=== PATIENT | female | born 1975 | race Caucasian/White ===

== ENCOUNTER → 2017-01-29 | Outpatient (CLI) | payer BC | END | disposition home or self-care (01) | LOC: C.PAPS 14:15 | PROVIDERS: ATTEND Obstetrics & Gynecology | DX: Z01.419 Encounter for gynecological examination (general) (routine) without abnormal findings (principal) ==

== ENCOUNTER 2022-10-30 17:28 | Observation (INO) ==
--- NOTE | 2022-10-30 17:45 | ED Triage Note ---
Date of Service October 30, 2022 History of Present Illness This patient was briefly evaluated while in triage. An abbreviated physical exam was performed. This patient is a 47-year-old Female who presents to the ED for evaluation of infection to groin area. She notes worsening size of the infection. Chills s aturday but none now. Can barely walk secondary to pain. Physical Exam GENERAL: 47year old female. In no acute distress. HEART: Regular rate and rhythm. LUNGS: Clear to auscultation. NEURO: Alert and oriented. No deficits. MUSCULOSKELETAL: No deformities to inspection of the extremities. PSYCH: Patient is pleasant and answers all questions appropriately. Initial orders for labs and / or imaging were placed and patient was placed in the waiting area until a bed is available. Please see further documentation for the full ED course.
[2022-10-30] MEDS ORDERED: SODIUM CHLORIDE 0.9% 1000ML 1,000 ML IV ONE (18:30)
[2022-10-30] MEDS ORDERED: MoRPHine SULFATE 4 MG/ML 1 ML CARP\\VIAL IV STA (18:30)
[2022-10-30] MEDS ORDERED: ONDANSETRON INJ 2 MG/ML 2 ML VIAL IV STA ×2 (18:30→19:44)
[2022-10-30 18:49] LABS: Basophils # (auto) 0.04 K/uL (0-0.2); Basophils % (auto) 0.3 %; Eosinophils # (auto) 0.12 K/uL (0-0.50); Eosinophils % (auto) 0.8 %; Hematocrit (blood only) 37.1 % (37.0-47.0); Hemoglobin 12.3 g/dl (12.0-16.0); Immature Granulocytes # (auto) 0.08 K/uL (0.01-0.20); Immature Granulocytes % (auto) 0.6 %; Lymphocytes # (auto) 2.12 K/uL (1.2-3.4); Lymphocytes % (auto) 14.9 %; Mean Corpuscular Hemoglobin 30.4 pg (25.0-34.0); Mean Corpuscular Hgb Conc 33.2 g/dL (32.0-36.0); Mean Corpuscular Volume 91.8 fL (80.0-100.0); Mean Platelet Volume 10.4 fL (9.4-12.4); Monocytes # (auto) 0.78 K/uL (0.11-0.59); Monocytes % (auto) 5.5 %; Neutrophils # (auto) 11.08 K/uL (1.40-6.50); Neutrophils % (auto) 77.9 %; Platelet Count 233 K/uL (130-400); RDW Standard Deviation 43.6 fL (36.4-46.3); Red Blood Count 4.04 M/uL (4.20-5.40); White Blood Count 14.22 K/ul (4.8-10.8)
[2022-10-30 18:56] LABS: Albumin Globulin Ratio 1.2 (0.9-2); Albumin Level 3.8 gm/dl (3.4-5.0); BUN Creatinine Ratio 23.5 (10-20); Bilirubin,Total 0.5 mg/dl (0.2-1.0); Calcium 8.5 mg/dl (8.6-10.3); Creatinine Clr Calc Pharmacy 127.2 ml/min; Est GFR (African American) 132.7 ml/min; Est GFR (Non-African American) 114.5 ml/min; Globulin 3.3 gm/dl (2.5-4.0); Potassium 3.4 mmol/L (3.5-5.1); Total Protein 7.1 gm/dl (6.0-8.3)
[2022-10-30 19:16] LABS: INR 0.9 (0.9-1.1); Partial Thromboplastin Time 27.6 Seconds (21.0-31.0); Prothrombin Time 10.3 Seconds (9.0-12.0)
[2022-10-30] MEDS ORDERED: VANCOMYCIN CONSULT ACTIVE PRN (19:17)
[2022-10-30] MEDS ORDERED: cefTRIAXone SODIUM 1,000 MG in DEXTROSE 5% AD-VAN 50 ML IV STA (19:17)
[2022-10-30] MEDS ORDERED: VANCOMYCIN HCL 1,750 MG in SODIUM CHLORIDE 0.9% 500 ML IV ONE (19:17)
[2022-10-30] MEDS ORDERED: OPTIRAY 320 100ml IV ONE (19:38)
--- NOTE | 2022-10-30 19:40 | Emergency Department Note ---
History of Present Illness General Chief complaint: Infection Stated complaint: INFECTION LEG/GROIN,SPREADING Time Seen by Provider: 10/30/22 18:12 History of Present Illness Provider complaint: Infection Maximum Pain Intensity: 8 47-year-old female presents emergency department with right groin rash and pain. Patient reports that starting Sunday she started having an ingrown hair in her right groin area. Patient states that she was seen in the emergency department and started on doxycycline on Sunday. She states since then the rash has become more inflamed, more tender to touch and more red. She denies any fevers. She denies any drainage. She does state that she had shaved the area approximately a week ago and then [place]. Home Medications Medication Instructions Recorded Confirmed Type montelukast 10 mg tablet 10 mg PO DAILY 04/05/20 10/30/22 History (Singulair) desogestrel 0.15 mg-ethinyl 1 tab PO DAILY 10/30/22 10/30/22 History estradiol 0.03 mg tablet (Enskyce) fluoxetine 40 mg capsule 40 mg PO DAILY 10/30/22 10/30/22 History multivitamin 1 tab PO DAILY 10/30/22 10/30/22 History semaglutide (weight loss) 2.4 2.4 mg subcut WK 10/30/22 10/30/22 History mg/0.75 mL subcutaneous pen injector (Wegovy) Allergies Allergy/AdvReac Type Severity Reaction Status Date / Time No Known Allergies Allergy Verified 04/26/22 14:01 Past Med/Surg History Medical History Varicella Surgical History H/O tooth extraction Family History Family/Other Depression Hepatitis Hypertension Osteoporosis Grandmother (Paternal) Uterine cancer Denies family history of Ovarian cancer Prostate cancer Myocardial infarction Breast cancer Colorectal cancer Social History Smoking Status: Former smoker Do You Dip or Chew Tobacco: No; Hx Alcohol Use: Yes Hx Substance Use: No Preferred Language: Malaysian Feels Safe at Home: Yes Physical Exam Vital Signs Vital Signs - 24 hr 10/30/22 17:42 Temperature 37 C Temperature Source Temporal Artery Scan Pulse Rate 91 H Respiratory Rate 15 Blood Pressure 152/91 H Blood Pressure Mean 111 Pulse Oximetry 97 Oxygen Delivery Method Room Air Sepsis Recent Fever Within 48 Hours No Sepsis New/Unexplained Change in Mental Status No Sepsis Action Taken by Nursing No Action Required Physical Exam CV: Normal rate, regular rhythm, normal heart sounds and intact distal pulses. There is no peripheral edema. Palpable radial pulses bue. PULM/CHEST: Effort normal and breath sounds normal. No respiratory distress. No stridor. She has no wheezes. She has no rales. ABD: The abdomen is soft and obese. She has no distension. No mass is present. There is no tenderness. There is no rebound, no guarding, no Guaman's sign and no tenderness at McBurney's point. Rovsig negative NEURO: She is alert and oriented to person, place, and time. She has normal strength. No cranial nerve deficit or sensory deficit. Coordination and gait normal. GCS eye subscore is 4. GCS verbal subscore is 5. GCS motor subscore is 6. Cerebellar tests wnl. SKIN: There are 2 small abrasion/scratches in the right inguinal/superior right vulvar area with significant amount of surrounding erythema extending into her right pannus. No vesicles. No drainage. Nikolsky negative. Course Course 1811: The patient was evaluated in room C6. A complete history and physical exam was performed Administered Medications Discontinued Medications Sodium Chloride (Nss 1000ml) 1,000 mls @ 999 mls/hr IV .Q1H1M ONE Stop: 10/30/22 19:30 Last Admin: 10/30/22 18:43 Dose: 999 mls/hr Documented By: PAM Ceftriaxone Sodium 1,000 mg/ (Dextrose) 50 mls @ 100 mls/hr IV NOW STA Stop: 10/30/22 19:46 Last Admin: 10/30/22 20:00 Dose: 100 mls/hr Documented By: TYLER Ioversol (Optiray 320 100ml) 95 ml IV ONCE ONE Stop: 10/30/22 19:39 Last Admin: 10/30/22 19:38 Dose: 95 ml Documented By: EDUARD Morphine Sulfate (Morphine Sulfate 4 Mg/Ml 1 Ml Carp\Vial) 4 mg IV NOW STA Stop: 10/30/22 18:31 Last Admin: 10/30/22 18:44 Dose: 4 mg Documented By: PAM Ondansetron HCl (Ondansetron Inj 2 Mg/Ml 2 Ml Vial) 4 mg IV NOW STA Stop: 10/30/22 18:31 Last Admin: 10/30/22 18:44 Dose: 4 mg Documented By: PAM Ondansetron HCl (Ondansetron Inj 2 Mg/Ml 2 Ml Vial) 4 mg IV NOW STA Stop: 10/30/22 19:45 Last Admin: 10/30/22 20:00 Dose: 4 mg Documented By: TYLER Medical Decision Making Laboratory Data Attestation: I reviewed the patient's lab results. 10/30/22 18:12 10/30/22 18:12 Lab Results 10/30/22 10/30/22 10/30/22 Range/Units 18:12 18:12 18:12 WBC 14.22 H (4.8-10.8) K/ul RBC 4.04 L (4.20-5.40) M/uL Hgb 12.3 (12.0-16.0) g/dl Hct 37.1 (37.0-47.0) % MCV 91.8 (80.0-100.0) fL MCH 30.4 (25.0-34.0) pg MCHC 33.2 (32.0-36.0) g/dL RDW Std Deviation 43.6 (36.4-46.3) fL RDW Coeff of Zana 13.0 (11.5-14.5) % Plt Count 233 (130-400) K/uL MPV 10.4 (9.4-12.4) fL Immature Gran % (Auto) 0.6 % Neut % (Auto) 77.9 % Lymph % (Auto) 14.9 % [place] % (Auto) 5.5 % Eos % (Auto) 0.8 % Baso % (Auto) 0.3 % Neut # (Auto) 11.08 H (1.40-6.50) K/uL Lymph # (Auto) 2.12 (1.2-3.4) K/uL [place] # (Auto) 0.78 H (0.11-0.59) K/uL Eos # (Auto) 0.12 (0-0.50) K/uL Baso # (Auto) 0.04 (0-0.2) K/uL Immature Gran # (Auto) 0.08 (0.01-0.20) K/uL PT (9.0-12.0) Seconds INR (0.9-1.1) APTT (21.0-31.0) Seconds PTT Ratio Sodium 138 (136-145) mmol/L Potassium 3.4 L (3.5-5.1) mmol/L Chloride 106 (98-107) mmol/L Carbon Dioxide 23 (21-32) mmol/L Anion Gap 9 (3-11) BUN 12 (6-23) mg/dl Creatinine 0.51 L (0.6-1.2) mg/dl Est Cr Clr Drug Dosing 127.2 ml/min Est GFR ( Amer) 132.7 ml/min Est GFR (Non-Af Amer) 114.5 ml/min BUN/Creatinine Ratio 23.5 H (10-20) Glucose 80 (70-99(Fasting)) mg/dl Lactate (0.4-2.0) mmol/L Calcium 8.5 L (8.6-10.3) mg/dl Total Bilirubin 0.5 (0.2-1.0) mg/dl AST 12 L (13-39) U/L ALT 15 (7-52) U/L Alkaline Phosphatase 73 (34-104) U/L Total Protein 7.1 (6.0-8.3) gm/dl Albumin 3.8 (3.4-5.0) gm/dl Globulin 3.3 (2.5-4.0) gm/dl Albumin/Globulin Ratio 1.2 (0.9-2) Procalcitonin 3.96 H (0-0.5) ng/ml SARS-CoV-2, RNA, NAAT (NEGATIVE) 10/30/22 10/30/22 10/30/22 Range/Units 18:12 18:12 20:55 WBC (4.8-10.8) K/ul RBC (4.20-5.40) M/uL Hgb (12.0-16.0) g/dl Hct (37.0-47.0) % MCV (80.0-100.0) fL MCH (25.0-34.0) pg MCHC (32.0-36.0) g/dL RDW Std Deviation (36.4-46.3) fL RDW Coeff of Zana (11.5-14.5) % Plt Count (130-400) K/uL MPV (9.4-12.4) fL Immature Gran % (Auto) % Neut % (Auto) % Lymph % (Auto) % [place] % (Auto) % Eos % (Auto) % Baso % (Auto) % Neut # (Auto) (1.40-6.50) K/uL Lymph # (Auto) (1.2-3.4) K/uL [place] # (Auto) (0.11-0.59) K/uL Eos # (Auto) (0-0.50) K/uL Baso # (Auto) (0-0.2) K/uL Immature Gran # (Auto) (0.01-0.20) K/uL PT 10.3 (9.0-12.0) Seconds INR 0.9 (0.9-1.1) APTT 27.6 (21.0-31.0) Seconds PTT Ratio 1.0 Sodium (136-145) mmol/L Potassium (3.5-5.1) mmol/L Chloride (98-107) mmol/L Carbon Dioxide (21-32) mmol/L Anion Gap (3-11) BUN (6-23) mg/dl Creatinine (0.6-1.2) mg/dl Est Cr Clr Drug Dosing ml/min Est GFR ( Amer) ml/min Est GFR (Non-Af Amer) ml/min BUN/Creatinine Ratio (10-20) Glucose (70-99(Fasting)) mg/dl Lactate 0.9 (0.4-2.0) mmol/L Calcium (8.6-10.3) mg/dl Total Bilirubin (0.2-1.0) mg/dl AST (13-39) U/L ALT (7-52) U/L Alkaline Phosphatase (34-104) U/L Total Protein (6.0-8.3) gm/dl Albumin (3.4-5.0) gm/dl Globulin (2.5-4.0) gm/dl Albumin/Globulin Ratio (0.9-2) Procalcitonin (0-0.5) ng/ml SARS-CoV-2, RNA, NAAT NEGATIVE (NEGATIVE) Imaging Data Radiologist's Impression: Abdomen/Pelvis CT 10/30/22 18:29 Exam(s): CT ABDOMEN + PELVIS With Contrast IV Amt: 95ml optiray 320 EXAM: CT Abdomen and Pelvis With Intravenous Contrast CLINICAL HISTORY: Reason for exam: R inguinal RLQ possible abscess. TECHNIQUE: Axial computed tomography images of the abdomen and pelvis with intravenous contrast. CTDI is 28.11 mGy and DLP is 1244.93 mGy-cm. Automated exposure control was utilized for the study. A dose lowering technique was utilized adhering to the principles of ALARA. CONTRAST: Patient received 95ml optiray 320 of IV contrast COMPARISON: No relevant prior studies available. FINDINGS: Lung bases: Unremarkable. No mass. No consolidation. ABDOMEN: Liver: Unremarkable. No mass. Gallbladder and bile ducts: Unremarkable. No calcified stones. No ductal dilation. Pancreas: Unremarkable. No mass. No ductal dilation. Spleen: Unremarkable. No splenomegaly. Adrenals: Unremarkable. No mass. Kidneys and ureters: Unremarkable. No solid mass. No hydronephrosis. Stomach and bowel: Status post Hayley-en-Y gastric bypass. No obstruction of the jejunojejunostomy. Diverticulosis, without acute diverticulitis. No small bowel obstruction. No free intraperitoneal air. PELVIS: Appendix: No findings to suggest acute appendicitis. Bladder: Unremarkable. No mass. Reproductive: Unremarkable as visualized. ABDOMEN and PELVIS: Intraperitoneal space: Unremarkable. No free air. No significant fluid collection. Bones/joints: Grade 1 anterolisthesis of L5 on S1. No acute fracture. No dislocation. Soft tissues: Mild skin thickening and edema along the anterior abdominal pannus, preferentially located in the deep pannus on the RIGHT, consistent with cellulitis. No fluid collection or abscess. Mild reactive RIGHT inguinal lymph nodes. Vasculature: Unremarkable. No abdominal aortic aneurysm. Lymph nodes: Unremarkable. No enlarged lymph nodes. IMPRESSION: 1. Mild skin thickening and edema along the anterior abdominal pannus, preferentially located in the deep pannus on the RIGHT, consistent with cellulitis. No fluid collection or abscess. Mild reactive RIGHT inguinal lymph nodes. 2. Status post Hayley-en-Y gastric bypass. No obstruction of the jejunojejunostomy. Electronically signed by: Ryan Cobian MD 10/30/22 20:03 PM MDM Narrative Cardiac monitoring: An order was placed for continuous cardiac monitoring. The monitor shows a rate of 90 with sinus rhythm interpreted by me Vital signs stable. Labs show leukocytosis of 14. Procalcitonin is elevated. Lactic acid is within normal limits. CT imaging shows cellulitis with no abscess. Patient be treated with Rocephin and vancomycin [facility] failed outpatient treatment. Dr. Pollard is aware of the patient Impression & Plan Cellulitis Discharge Plan Visit Data Chief Complaint: Infection Stated Complaint: INFECTION LEG/GROIN,SPREADING ED Provider: Solomon William Discharge Problem: Cellulitis Patient Disposition: Admitted As Inpatient Forms Stand Alone Forms: [facility] Prescriptions Prescriptions: No Action montelukast [Singulair] 10 mg tablet 10 mg PO DAILY desogestrel-ethinyl estradiol [Enskyce] 0.15-0.03 mg tablet 1 tab PO DAILY fluoxetine 40 mg capsule 40 mg PO DAILY multivitamin Tablet 1 tab PO DAILY Wegovy 2.4 mg/0.75 mL pen injector 2.4 mg SUBCUT WK Referrals Referrals: Ned Boone MD [Primary Care Provider] -
--- NOTE | 2022-10-30 20:04 | CT Scan Report ---
Exam(s): CT ABDOMEN + PELVIS With Contrast IV Amt: 95ml optiray 320 EXAM: CT Abdomen and Pelvis With Intravenous Contrast CLINICAL HISTORY: Reason for exam: R inguinal RLQ possible abscess. TECHNIQUE: Axial computed tomography images of the abdomen and pelvis with intravenous contrast. CTDI is 28.11 mGy and DLP is 1244.93 mGy-cm. Automated exposure control was utilized for the study. A dose lowering technique was utilized adhering to the principles of ALARA. CONTRAST: Patient received 95ml optiray 320 of IV contrast COMPARISON: No relevant prior studies available. FINDINGS: Lung bases: Unremarkable. No mass. No consolidation. ABDOMEN: Liver: Unremarkable. No mass. Gallbladder and bile ducts: Unremarkable. No calcified stones. No ductal dilation. Pancreas: Unremarkable. No mass. No ductal dilation. Spleen: Unremarkable. No splenomegaly. Adrenals: Unremarkable. No mass. Kidneys and ureters: Unremarkable. No solid mass. No hydronephrosis. Stomach and bowel: Status post Hayely-en-Y gastric bypass. No obstruction of the jejunojejunostomy. Diverticulosis, without acute diverticulitis. No small bowel obstruction. No free intraperitoneal air. PELVIS: Appendix: No findings to suggest acute appendicitis. Bladder: Unremarkable. No mass. Reproductive: Unremarkable as visualized. ABDOMEN and PELVIS: Intraperitoneal space: Unremarkable. No free air. No significant fluid collection. Bones/joints: Grade 1 anterolisthesis of L5 on S1. No acute fracture. No dislocation. Soft tissues: Mild skin thickening and edema along the anterior abdominal pannus, preferentially located in the deep pannus on the RIGHT, consistent with cellulitis. No fluid collection or abscess. Mild reactive RIGHT inguinal lymph nodes. Vasculature: Unremarkable. No abdominal aortic aneurysm. Lymph nodes: Unremarkable. No enlarged lymph nodes. IMPRESSION: 1. Mild skin thickening and edema along the anterior abdominal pannus, preferentially located in the deep pannus on the RIGHT, consistent with cellulitis. No fluid collection or abscess. Mild reactive RIGHT inguinal lymph nodes. 2. Status post Hayley-en-Y gastric bypass. No obstruction of the jejunojejunostomy. Electronically signed by: Ryan Cobian MD 10/30/22 20:03 PM
--- NOTE | 2022-10-30 21:46 | History & Physical Report ---
Date of Service October 30, 2022 Assessment & Plan (1) Cellulitis: Plan: 47-year-old female with past medical history significant for obstructive sleep apnea, hypertension, morbid obesity, GERD, TEO presents with cellulitis of the groin and lower abdominal region. Cellulitis In the groin region extending into the lower abdomen region. Failed outpatient treatment with p.o. doxycycline. In the ER was given IV Vanco and Rocephin which will be continued. Monitor in the hospital and monitor the response. Pain control. Obstructive sleep apnea CPAP nightly. Hypertension Currently not on medications we will monitor the blood pressure. Morbid obesity S/p gastric surgery Follow-up with PCP. Generalized anxiety disorder On fluoxetine. DVT prophylaxis Lovenox. Disposition Monitor the medical floor. Full code. History of Present Illness Chief Complaint: Cellulitis of the lower abdomen and groin region Primary Care Provider: Ned Boone MD 47-year-old female with past medical history significant for obstructive sleep apnea on CPAP, hypertension, morbid obesity, GERD, generalized anxiety disorder, history of bariatric surgery presents with cellulitis of the lower abdominal and groin region and failed outpatient treatment with doxycycline. Patient thinks she might of some cut from shaving in groin region and recently she was at beach and last Sunday she noticed some pain and erythematous changes in the groin region. She came to the ER on Sunday. At that time she was feeling having some chills and possibly low-grade fevers. She was discharged from ER on p.o. doxycycline. Patient says her pain got worse and the erythematous rash got worse so she came back to the ER today. Currently resting comfortably and hemodynamically stable. Denies any headache currently , had headaches couple of days ago. Denies dizziness. No runny nose, no sore throat, no earaches, no cough, no difficulty swallowing. No chest pain or shortness of breath. No nausea. Normal bowel and bladder movements. Past medical history as mentioned above. Past surgical history EGD, laparoscopic procedure of the liver, laparoscopic gastric bypass surgery Hayley-en-Y. Allergies Allergy/AdvReac Type Severity Reaction Status Date / Time No Known Allergies Allergy Verified 04/26/22 14:01 Home Medications Medication Instructions Recorded Confirmed Type montelukast 10 mg tablet 10 mg PO DAILY 04/05/20 10/30/22 History (Singulair) desogestrel 0.15 mg-ethinyl 1 tab PO DAILY 10/30/22 10/30/22 History estradiol 0.03 mg tablet (Enskyce) fluoxetine 40 mg capsule 40 mg PO DAILY 10/30/22 10/30/22 History multivitamin 1 tab PO DAILY 10/30/22 10/30/22 History semaglutide (weight loss) 2.4 2.4 mg subcut WK 10/30/22 10/30/22 History mg/0.75 mL subcutaneous pen injector (Wegovy) Past Med/Surg History Medical History Varicella Surgical History H/O tooth extraction Family History Family/Other Depression Hepatitis Hypertension Osteoporosis Grandmother (Paternal) Uterine cancer Denies family history of Ovarian cancer Prostate cancer Myocardial infarction Breast cancer Colorectal cancer Social History (Updated 10/30/22 @ 21:41 by Steven Pollard MD) Smoking Status: Former smoker Do You Dip or Chew Tobacco: No; Hx Alcohol Use: Yes Hx Substance Use: No Preferred Language: Faroese Feels Safe at Home: Yes Review of Systems Review of Systems: All systems reviewed & are unremarkable except as noted in Subjective Physical Exam Physical Exam: NEEDS EDITING General- adult Head- atraumatic Eyes- PERRL, ENT- oropharynx clear Neck- supple, no JVD, Lungs- clear to auscultation and percussion Heart- regular rhythm; no murmur, no gallop, no rub appreciated Abdomen- normal bowel sounds, soft, erythematous rash from groin to lower abdomen, tender to palpate. Extremities- no pretibial edema, no calf tenderness; peripheral pulses intact Neuro- alert, oriented x 3; PERRL, EOMI; no facial palsy; no dysarthria; non focal. Results & Data Results & Data Vital Signs (Past 12 Hours) Vital Signs Temp Pulse Resp BP Pulse Ox O2 Del Method 10/30/22 17:42 37 C 91 H 15 152/91 H 97 Room Air Diagnostic Findings Laboratory Results WBC 14.22 K/ul (4.8-10.8) H 10/30/22 18:12 RBC 4.04 M/uL (4.20-5.40) L 10/30/22 18:12 Hgb 12.3 g/dl (12.0-16.0) 10/30/22 18:12 Hct 37.1 % (37.0-47.0) 10/30/22 18:12 MCV 91.8 fL (80.0-100.0) 10/30/22 18:12 MCH 30.4 pg (25.0-34.0) 10/30/22 18:12 MCHC 33.2 g/dL (32.0-36.0) 10/30/22 18: RDW Std Deviation 43.6 fL (36.4-46.3) 10/30/22 18:12 RDW Coeff of Zana 13.0 % (11.5-14.5) 10/30/22 18:12 Plt Count 233 K/uL (130-400) 10/30/22 18:12 MPV 10.4 fL (9.4-12.4) 10/30/22 18:12 Immature Gran % (Auto) 0.6 % 10/30/22 18:12 Neut % (Auto) 77.9 % 10/30/22 18:12 Lymph % (Auto) 14.9 % 10/30/22 18:12 [place] % (Auto) 5.5 % 10/30/22 18:12 Eos % (Auto) 0.8 % 10/30/22 18:12 Baso % (Auto) 0.3 % 10/30/22 18:12 Neut # (Auto) 11.08 K/uL (1.40-6.50) H 10/30/22 18:12 Lymph # (Auto) 2.12 K/uL (1.2-3.4) 10/30/22 18:12 [place] # (Auto) 0.78 K/uL (0.11-0.59) H 10/30/22 18:12 Eos # (Auto) 0.12 K/uL (0-0.50) 10/30/22 18:12 Baso # (Auto) 0.04 K/uL (0-0.2) 10/30/22 18:12 Immature Gran # (Auto) 0.08 K/uL (0.01-0.20) 10/30/22 18:12 PT 10.3 Seconds (9.0-12.0) 10/30/22 18:12 INR 0.9 (0.9-1.1) 10/30/22 18:12 APTT 27.6 Seconds (21.0-31.0) 10/30/22 18:12 PTT Ratio 1.0 10/30/22 18:12 Sodium 138 mmol/L (136-145) 10/30/22 18:12 Potassium 3.4 mmol/L (3.5-5.1) L 10/30/22 18:12 Chloride 106 mmol/L (98-107) 10/30/22 18:12 Carbon Dioxide 23 mmol/L (21-32) 10/30/22 18:12 Anion Gap 9 (3-11) 10/30/22 18:12 BUN 12 mg/dl (6-23) 10/30/22 18:12 Creatinine 0.51 mg/dl (0.6-1.2) L 10/30/22 18:12 Est Cr Clr Drug Dosing 127.2 ml/min 10/30/22 18:12 Est GFR ( Amer) 132.7 ml/min 10/30/22 18:12 Est GFR (Non-Af Amer) 114.5 ml/min 10/30/22 18:12 BUN/Creatinine Ratio 23.5 (10-20) H 10/30/22 18:12 Glucose 80 mg/dl (70-99(Fasting)) 10/30/22 18:12 Lactate 0.9 mmol/L (0.4-2.0) 10/30/22 18:12 Calcium 8.5 mg/dl (8.6-10.3) L 10/30/22 18:12 Total Bilirubin 0.5 mg/dl (0.2-1.0) 10/30/22 18:12 AST 12 U/L (13-39) L 10/30/22 18:12 ALT 15 U/L (7-52) 10/30/22 18:12 Alkaline Phosphatase 73 U/L (34-104) 10/30/22 18:12 Total Protein 7.1 gm/dl (6.0-8.3) 10/30/22 18:12 Albumin 3.8 gm/dl (3.4-5.0) 10/30/22 18:12 Globulin 3.3 gm/dl (2.5-4.0) 10/30/22 18:12 Albumin/Globulin Ratio 1.2 (0.9-2) 10/30/22 18:12 Procalcitonin 3.96 ng/ml (0-0.5) H 10/30/22 18:12 SARS-CoV-2, RNA, NAAT NEGATIVE (NEGATIVE) 10/30/22 20:55 Impressions Abdomen/Pelvis CT 10/30/22 18:29 Exam(s): CT ABDOMEN + PELVIS With Contrast IV Amt: 95ml optiray 320 EXAM: CT Abdomen and Pelvis With Intravenous Contrast CLINICAL HISTORY: Reason for exam: R inguinal RLQ possible abscess. TECHNIQUE: Axial computed tomography images of the abdomen and pelvis with intravenous contrast. CTDI is 28.11 mGy and DLP is 1244.93 mGy-cm. Automated exposure control was utilized for the study. A dose lowering technique was utilized adhering to the principles of ALARA. CONTRAST: Patient received 95ml optiray 320 of IV contrast COMPARISON: No relevant prior studies available. FINDINGS: Lung bases: Unremarkable. No mass. No consolidation. ABDOMEN: Liver: Unremarkable. No mass. Gallbladder and bile ducts: Unremarkable. No calcified stones. No ductal dilation. Pancreas: Unremarkable. No mass. No ductal dilation. Spleen: Unremarkable. No splenomegaly. Adrenals: Unremarkable. No mass. Kidneys and ureters: Unremarkable. No solid mass. No hydronephrosis. Stomach and bowel: Status post Hayley-en-Y gastric bypass. No obstruction of the jejunojejunostomy. Diverticulosis, without acute diverticulitis. No small bowel obstruction. No free intraperitoneal air. PELVIS: Appendix: No findings to suggest acute appendicitis. Bladder: Unremarkable. No mass. Reproductive: Unremarkable as visualized. ABDOMEN and PELVIS: Intraperitoneal space: Unremarkable. No free air. No significant fluid collection. Bones/joints: Grade 1 anterolisthesis of L5 on S1. No acute fracture. No dislocation. Soft tissues: Mild skin thickening and edema along the anterior abdominal pannus, preferentially located in the deep pannus on the RIGHT, consistent with cellulitis. No fluid collection or abscess. Mild reactive RIGHT inguinal lymph nodes. Vasculature: Unremarkable. No abdominal aortic aneurysm. Lymph nodes: Unremarkable. No enlarged lymph nodes. IMPRESSION: 1. Mild skin thickening and edema along the anterior abdominal pannus, preferentially located in the deep pannus on the RIGHT, consistent with cellulitis. No fluid collection or abscess. Mild reactive RIGHT inguinal lymph nodes. 2. Status post Hayley-en-Y gastric bypass. No obstruction of the jejunojejunostomy. Electronically signed by: Ryan Cobian MD 10/30/22 20:03 PM Code Status & VTE Plan VTE Prophylaxis Plan VTE Prophylaxis will be ordered: Yes (1) Cellulitis Site of cellulitis: trunk Site of cellulitis of trunk: groin Qualified Cod e(s): L03.314 - Cellulitis of groin
[2022-10-31] MEDS ORDERED: MoRPHine SULFATE 4 MG/ML 1 ML CARP\\VIAL IV PRN (00:59)
[2022-10-31] MEDS ORDERED: SODIUM CHLORIDE 0.9% 1000ML 1,000 ML IV SCH (00:59)
[2022-10-31] MEDS: ACETAMINOPHEN 325 MG TAB PO PRN ×3 (01:13→20:05)
[2022-10-31] MEDS: VANCOMYCIN HCL 1,250 MG in SODIUM CHLORIDE 0.9% 250 ML IV SCH ×2 (03:50→16:11)
[2022-10-31 06:59] LABS: Basophils # (auto) 0.03 K/uL (0-0.2); Basophils % (auto) 0.3 %; Eosinophils # (auto) 0.16 K/uL (0-0.50); Eosinophils % (auto) 1.5 %; Hematocrit (blood only) 32.2 % (37.0-47.0); Hemoglobin 10.8 g/dl (12.0-16.0); Immature Granulocytes # (auto) 0.02 K/uL (0.01-0.20); Immature Granulocytes % (auto) 0.2 %; Lymphocytes # (auto) 2.33 K/uL (1.2-3.4); Lymphocytes % (auto) 22.4 %; Mean Corpuscular Hemoglobin 30.2 pg (25.0-34.0); Mean Corpuscular Hgb Conc 33.5 g/dL (32.0-36.0); Mean Corpuscular Volume 89.9 fL (80.0-100.0); Mean Platelet Volume 10.3 fL (9.4-12.4); Monocytes # (auto) 0.67 K/uL (0.11-0.59); Monocytes % (auto) 6.4 %; Neutrophils # (auto) 7.18 K/uL (1.40-6.50); Neutrophils % (auto) 69.2 %; Platelet Count 191 K/uL (130-400); RDW Coefficient of Variation 12.9 % (11.5-14.5); RDW Standard Deviation 42.8 fL (36.4-46.3); Red Blood Count 3.58 M/uL (4.20-5.40); White Blood Count 10.39 K/ul (4.8-10.8)
[2022-10-31 07:14] LABS: BUN Creatinine Ratio 17.1 (10-20); Calcium 7.5 mg/dl (8.6-10.3); Creatinine Clr Calc Pharmacy 156.3 ml/min; Est GFR (African American) 142.6 ml/min; Magnesium 1.8 mg/dl (1.7-2.4); Potassium 3.5 mmol/L (3.5-5.1)
[2022-10-31 07:21] LABS: Estimated Average Glucose 111 mg/dl; Hemoglobin A1C 5.5 % (4.5-5.6)
[2022-10-31] MEDS ORDERED: POTASSIUM CHLORIDE CRTAB 20 MEQ TABCR PO STA (07:44)
--- NOTE | 2022-10-31 07:45 | Hospitalist Progress Note ---
Date of Service October 31, 2022 Assessment & Plan (1) Cellulitis: Plan: 47-year-old female with past medical history significant for obstructive sleep apnea, hypertension, morbid obesity, GERD, TEO presents with cellulitis of the groin and lower abdominal region. Cellulitis In the groin region extending into the lower abdomen region. Failed outpatient treatment with p.o. doxycycline. In the ER was given IV Vanco and Rocephin which will be continued. Monitor in the hospital and monitor the response. Pain control. 10/31 erythema and tenderness both much improved per patient. Continue with IV antibiotics. Obstructive sleep apnea CPAP nightly. Hypertension Currently not on medications we will monitor the blood pressure. Morbid obesity S/p gastric surgery Follow-up with PCP. Generalized anxiety disorder On fluoxetine. DVT prophylaxis Lovenox. Disposition Monitor the medical floor. Full code. Admission and Anticipated Discharge Date Admission Date: October 30, 2022 Subjective Pt seen in follow up of cellulitis Currently laying in bed, in no acute distress. Reports that abdominal redness already much subsided and pain also subsided. Denies fevers chills shortness of breath or chest pain. Reports that she is trying to go to [facility] this week for short vacation. Review of Systems Review of Systems: All systems reviewed & are unremarkable except as noted in Subjective Physical Exam Physical Exam: General- obese F in NAD Head- atraumatic Eyes- PERRL ENT- oropharynx clear Neck- supple, no JVD Lungs- clear to auscultation b/l Heart- regular rhythm; no murmur Abdomen- normal bowel sounds, soft, erythematous rash from groin to lower abdomen, tender to palpate (erythema and tenderness both improved from previous exam) Extremities- no pretibial edema, no calf tenderness; moves extremities Neuro- alert, oriented x 3; PERRL, EOMI; no facial palsy; no dysarthria; answers appropriately, moves extremities Results & Data Results & Data Vital Signs (Past 12 Hours) Vital Signs Temp Pulse Pulse Resp BP BP Pulse Ox 10/31/22 07:38 36.7 C 87 16 116/73 97 10/31/22 01:40 90 14 98 10/31/22 01:00 37.1 C 96 H 16 143/90 H 98 10/31/22 00:32 88 16 110/76 98 10/31/22 00:20 95 H 20 97 10/31/22 00:10 91 H 20 95 10/31/22 00:00 97 H 21 97 10/31/22 00:00 115/72 10/30/22 23:50 17 10/30/22 23:40 97 H 28 H 97 10/30/22 23:30 97 H 24 98 10/30/22 23:30 121/91 10/30/22 23:20 95 H 18 99 10/30/22 23:10 19 97 10/30/22 23:00 81 20 97 10/30/22 23:00 122/73 10/30/22 22:50 84 21 97 10/30/22 22:40 84 13 98 10/30/22 22:30 95 H 23 99 10/30/22 22:30 125/84 10/30/22 22:20 85 27 H 96 10/30/22 22:10 96 H 18 97 10/30/22 22:00 86 21 97 10/30/22 22:00 117/73 10/30/22 21:50 82 26 H 97 10/30/22 21:40 82 20 96 10/30/22 21:30 89 15 98 10/30/22 21:30 138/83 10/30/22 21:20 93 H 19 100 10/30/22 21:10 84 20 98 10/30/22 21:00 91 H 21 99 10/30/22 21:00 127/81 10/30/22 20:50 81 23 99 10/30/22 20:40 77 22 97 10/30/22 20:30 87 23 95 10/30/22 20:30 120/76 10/30/22 20:20 84 21 98 10/30/22 20:10 85 20 99 10/30/22 20:00 90 22 98 10/30/22 20:00 135/86 10/30/22 19:54 128/80 10/30/22 19:54 91 H 21 99 10/30/22 19:50 20 98 10/30/22 22:35 77 O2 Del Method 10/31/22 07:38 Room Air 10/31/22 01:40 10/31/22 01:00 Room Air 10/31/22 00:32 Room Air 10/31/22 00:20 10/31/22 00:10 10/31/22 00:00 10/31/22 00:00 10/30/22 23:50 10/30/22 23:40 10/30/22 23:30 10/30/22 23:30 10/30/22 23:20 10/30/22 23:10 10/30/22 23:00 10/30/22 23:00 10/30/22 22:50 10/30/22 22:40 10/30/22 22:30 10/30/22 22:30 10/30/22 22:20 10/30/22 22:10 10/30/22 22:00 10/30/22 22:00 10/30/22 21:50 10/30/22 21:40 10/30/22 21:30 10/30/22 21:30 10/30/22 21:20 10/30/22 21:10 10/30/22 21:00 10/30/22 21:00 10/30/22 20:50 10/30/22 20:40 10/30/22 20:30 10/30/22 20:30 10/30/22 20:20 10/30/22 20:10 10/30/22 20:00 10/30/22 20:00 10/30/22 19:54 10/30/22 19:54 10/30/22 19:50 10/30/22 22:35 Laboratory Results 10/31/22 10/31/22 10/31/22 Range/Units 06:19 06:19 06:19 WBC 10.39 (4.8-10.8) K/ul RBC 3.58 L (4.20-5.40) M/uL Hgb 10.8 L (12.0-16.0) g/dl Hct 32.2 L (37.0-47.0) % MCV 89.9 (80.0-100.0) fL MCH 30.2 (25.0-34.0) pg MCHC 33.5 (32.0-36.0) g/dL RDW Std Deviation 42.8 (36.4-46.3) fL RDW Coeff of Zana 12.9 (11.5-14.5) % Plt Count 191 (130-400) K/uL MPV 10.3 (9.4-12.4) fL Immature Gran % (Auto) 0.2 % Neut % (Auto) 69.2 % Lymph % (Auto) 22.4 % Zavala % (Auto) 6.4 % Eos % (Auto) 1.5 % Baso % (Auto) 0.3 % Neut # (Auto) 7.18 H (1.40-6.50) K/uL Lymph # (Auto) 2.33 (1.2-3.4) K/uL Zavala # (Auto) 0.67 H (0.11-0.59) K/uL Eos # (Auto) 0.16 (0-0.50) K/uL Baso # (Auto) 0.03 (0-0.2) K/uL Immature Gran # (Auto) 0.02 (0.01-0.20) K/uL PT (9.0-12.0) Seconds INR (0.9-1.1) APTT (21.0-31.0) Seconds PTT Ratio Sodium 140 (136-145) mmol/L Potassium 3.5 (3.5-5.1) mmol/L Chloride 109 H (98-107) mmol/L Carbon Dioxide 25 (21-32) mmol/L Anion Gap 6 (3-11) BUN 7 (6-23) mg/dl Creatinine 0.41 L (0.6-1.2) mg/dl Est Cr Clr Drug Dosing 156.3 ml/min Est GFR ( Amer) 142.6 ml/min Est GFR (Non-Af Amer) 123.0 ml/min BUN/Creatinine Ratio 17.1 (10-20) Glucose 85 (70-99(Fasting)) mg/dl Estimat Average Glucose 111 mg/dl Hemoglobin A1c 5.5 (4.5-5.6) % Lactate (0.4-2.0) mmol/L Calcium 7.5 L (8.6-10.3) mg/dl Magnesium 1.8 (1.7-2.4) mg/dl Total Bilirubin (0.2-1.0) mg/dl AST (13-39) U/L ALT (7-52) U/L Alkaline Phosphatase (34-104) U/L Total Protein (6.0-8.3) gm/dl Albumin (3.4-5.0) gm/dl Globulin (2.5-4.0) gm/dl Albumin/Globulin Ratio (0.9-2) Procalcitonin (0-0.5) ng/ml SARS-CoV-2, RNA, NAAT (NEGATIVE) 10/30/22 10/30/22 10/30/22 Range/Units 20:55 18:12 18:12 WBC (4.8-10.8) K/ul RBC (4.20-5.40) M/uL Hgb (12.0-16.0) g/dl Hct (37.0-47.0) % MCV (80.0-100.0) fL MCH (25.0-34.0) pg MCHC (32.0-36.0) g/dL RDW Std Deviation (36.4-46.3) fL RDW Coeff of Zana (11.5-14.5) % Plt Count (130-400) K/uL MPV (9.4-12.4) fL Immature Gran % (Auto) % Neut % (Auto) % Lymph % (Auto) % Zavala % (Auto) % Eos % (Auto) % Baso % (Auto) % Neut # (Auto) (1.40-6.50) K/uL Lymph # (Auto) (1.2-3.4) K/uL Zavala # (Auto) (0.11-0.59) K/uL Eos # (Auto) (0-0.50) K/uL Baso # (Auto) (0-0.2) K/uL Immature Gran # (Auto) (0.01-0.20) K/uL PT 10.3 (9.0-12.0) Seconds INR 0.9 (0.9-1.1) APTT 27.6 (21.0-31.0) Seconds PTT Ratio 1.0 Sodium (136-145) mmol/L Potassium (3.5-5.1) mmol/L Chloride (98-107) mmol/L Carbon Dioxide (21-32) mmol/L Anion Gap (3-11) BUN (6-23) mg/dl Creatinine (0.6-1.2) mg/dl Est Cr Clr Drug Dosing ml/min Est GFR ( Amer) ml/min Est GFR (Non-Af Amer) ml/min BUN/Creatinine Ratio (10-20) Glucose (70-99(Fasting)) mg/dl Estimat Average Glucose mg/dl Hemoglobin A1c (4.5-5.6) % Lactate 0.9 (0.4-2.0) mmol/L Calcium (8.6-10.3) mg/dl Magnesium (1.7-2.4) mg/dl Total Bilirubin (0.2-1.0) mg/dl AST (13-39) U/L ALT (7-52) U/L Alkaline Phosphatase (34-104) U/L Total Protein (6.0-8.3) gm/dl Albumin (3.4-5.0) gm/dl Globulin (2.5-4.0) gm/dl Albumin/Globulin Ratio (0.9-2) Procalcitonin (0-0.5) ng/ml SARS-CoV-2, RNA, NAAT NEGATIVE (NEGATIVE) 10/30/22 10/30/22 10/30/22 Range/Units 18:12 18:12 18:12 WBC 14.22 H (4.8-10.8) K/ul RBC 4.04 L (4.20-5.40) M/uL Hgb 12.3 (12.0-16.0) g/dl Hct 37.1 (37.0-47.0) % MCV 91.8 (80.0-100.0) fL MCH 30.4 (25.0-34.0) pg MCHC 33.2 (32.0-36.0) g/dL RDW Std Deviation 43.6 (36.4-46.3) fL RDW Coeff of Zana 13.0 (11.5-14.5) % Plt Count 233 (130-400) K/uL MPV 10.4 (9.4-12.4) fL Immature Gran % (Auto) 0.6 % Neut % (Auto) 77.9 % Lymph % (Auto) 14.9 % Zavala % (Auto) 5.5 % Eos % (Auto) 0.8 % Baso % (Auto) 0.3 % Neut # (Auto) 11.08 H (1.40-6.50) K/uL Lymph # (Auto) 2.12 (1.2-3.4) K/uL Zavala # (Auto) 0.78 H (0.11-0.59) K/uL Eos # (Auto) 0.12 (0-0.50) K/uL Baso # (Auto) 0.04 (0-0.2) K/uL Immature Gran # (Auto) 0.08 (0.01-0.20) K/uL PT (9.0-12.0) Seconds INR (0.9-1.1) APTT (21.0-31.0) Seconds PTT Ratio Sodium 138 (136-145) mmol/L Potassium 3.4 L (3.5-5.1) mmol/L Chloride 106 (98-107) mmol/L Carbon Dioxide 23 (21-32) mmol/L Anion Gap 9 (3-11) BUN 12 (6-23) mg/dl Creatinine 0.51 L (0.6-1.2) mg/dl Est Cr Clr Drug Dosing 127.2 ml/min Est GFR ( Amer) 132.7 ml/min Est GFR (Non-Af Amer) 114.5 ml/min BUN/Creatinine Ratio 23.5 H (10-20) Glucose 80 (70-99(Fasting)) mg/dl Estimat Average Glucose mg/dl Hemoglobin A1c (4.5-5.6) % Lactate (0.4-2.0) mmol/L Calcium 8.5 L (8.6-10.3) mg/dl Magnesium (1.7-2.4) mg/dl Total Bilirubin 0.5 (0.2-1.0) mg/dl AST 12 L (13-39) U/L ALT 15 (7-52) U/L Alkaline Phosphatase 73 (34-104) U/L Total Protein 7.1 (6.0-8.3) gm/dl Albumin 3.8 (3.4-5.0) gm/dl Globulin 3.3 (2.5-4.0) gm/dl Albumin/Globulin Ratio 1.2 (0.9-2) Procalcitonin 3.96 H (0-0.5) ng/ml SARS-CoV-2, RNA, NAAT (NEGATIVE) Medications Administered Current Inpatient Medications Acetaminophen (Acetaminophen 325 Mg Tab) 650 mg PO Q4H PRN PRN Reason: Pain Stop: 11/30/22 01:06 Last Admin: 10/31/22 01:13 Dose: 650 mg Enoxaparin Sodium (Enoxaparin Inj 40 Mg/0.4 Ml Syr) 40 mg SQ QAM [facility] Stop: 11/30/22 08:59 Fluoxetine HCl (Fluoxetine Hcl 20 Mg Cap) 40 mg PO DAILY [facility] Stop: 11/30/22 08:59 Ceftriaxone Sodium 2,000 mg/ (Dextrose) 70 mls @ 100 mls/hr IV Q24H [facility]; Protocol Stop: 11/07/22 19:59 Sodium Chloride (Nss 1000ml) 1,000 mls @ 80 mls/hr IV .[id number] [facility] Stop: 10/31/22 13:28 Last Admin: 10/31/22 01:15 Dose: 80 mls/hr Vancomycin HCl 1,250 mg/ (Sodium Chloride) 275 mls @ 200 mls/hr IV Q12H [facility] Stop: 11/07/22 03:59 Last Infusion: 10/31/22 05:13 Dose: Infused Lactobacillus Acidophilus (Advanced Probiotic 1250 Mg Capsule) 2 cap PO DAILY [facility] Stop: 11/30/22 08:59 Miscellaneous Information (Vancomycin Consult Active) 1 each N/A UD PRN PRN Reason: Consult Stop: 11/29/22 19:16 Montelukast Sodium (Montelukast Sodium 10 Mg Tablet) 10 mg PO DAILY [facility] Stop: 11/30/22 08:59 Morphine Sulfate (Morphine Sulfate 4 Mg/Ml 1 Ml Carp\Vial) 3 mg IV Q4H PRN PRN Reason: Severe Pain (Scale 7, 8, 9,10) Stop: 11/14/22 00:58 Multivitamins (Multivitamin Tab) 1 tab PO DAILY [facility] Stop: 11/30/22 08:59 Potassium Chloride (Potassium Chloride Crtab 20 Meq Tabcr) 40 meq PO NOW STA Stop: 10/31/22 07:45 (1) Cellulitis Site of cellulitis: unspecified site Qualified Code(s): L03.90 - Cellulitis, unspecified
[2022-10-31] MEDS: FLUoxetine HCL 20 MG CAP PO SCH (08:36)
[2022-10-31] MEDS: MULTIVITAMIN TAB PO SCH (08:36)
[2022-10-31] MEDS: MONTELUKAST SODIUM 10 MG TABLET PO SCH (08:36)
[2022-10-31] MEDS: ENOXAPARIN INJ 40 MG/0.4 ML SYR SQ SCH (08:37)
[2022-10-31] MEDS: ADVANCED PROBIOTIC 1250 MG CAPSULE PO SCH (08:37)
--- NOTE | 2022-10-31 10:32 | Pharmacy Report ---
Pharmacy PK ABX Note - Date of Service October 31, 2022 - Assessment and Plan Assessment 47 year old F receiving Vancomycin and Ceftriaxone for treatment of groin and lower abdominal cellulitis. * Day #1 of antimicrobial therapy. * Afebrile. Leukocytosis of 14.2k initially, down to 10.4k today. SCr near baseline at 0.41 mg/dL today. Procal positive at 3.96. * Blood cultures pending. Plan Vancomycin * Loading dose: 1750 mg IV x 1 * Maintenance dose: 1250 mg IV every 12 hours * Regimen is predicted to achieve target AUC/EZEQUIEL of 400-600 mg/L.hr * Random level ordered for: 11/01/22 Pharmacy will continue to follow and will adjust dose/frequency as necessary. Thank you. Pharmacy has transitioned to AUC monitoring for vancomycin. AUC/EZEQUIEL is the preferred PK/PD target and is associated with decreased risk of nephrotoxicity compared to traditional trough targets.
[2022-10-31] MEDS ORDERED: cefTRIAXone SODIUM 2,000 MG in DEXTROSE 5% 50 ML IV SCH (20:00)
[2022-11-01] MEDS: VANCOMYCIN HCL 1,250 MG in SODIUM CHLORIDE 0.9% 250 ML IV SCH (03:26)
[2022-11-01] MEDS: ADVANCED PROBIOTIC 1250 MG CAPSULE PO SCH (07:43)
[2022-11-01] MEDS: FLUoxetine HCL 20 MG CAP PO SCH (07:43)
[2022-11-01] MEDS: ENOXAPARIN INJ 40 MG/0.4 ML SYR SQ SCH (07:43)
[2022-11-01] MEDS: MONTELUKAST SODIUM 10 MG TABLET PO SCH (07:43)
[2022-11-01] MEDS: MULTIVITAMIN TAB PO SCH (07:43)
[2022-11-01 08:36] LABS: Basophils # (auto) 0.03 K/uL (0-0.2); Basophils % (auto) 0.4 %; Eosinophils # (auto) 0.11 K/uL (0-0.50); Eosinophils % (auto) 1.4 %; Hematocrit (blood only) 36.1 % (37.0-47.0); Hemoglobin 11.9 g/dl (12.0-16.0); Immature Granulocytes # (auto) 0.03 K/uL (0.01-0.20); Immature Granulocytes % (auto) 0.4 %; Lymphocytes # (auto) 1.67 K/uL (1.2-3.4); Lymphocytes % (auto) 21.4 %; Mean Corpuscular Volume 90.9 fL (80.0-100.0); Mean Platelet Volume 9.8 fL (9.4-12.4); Monocytes # (auto) 0.49 K/uL (0.11-0.59); Monocytes % (auto) 6.3 %; Neutrophils # (auto) 5.49 K/uL (1.40-6.50); Neutrophils % (auto) 70.1 %; Platelet Count 235 K/uL (130-400); RDW Coefficient of Variation 12.9 % (11.5-14.5); RDW Standard Deviation 42.6 fL (36.4-46.3); Red Blood Count 3.97 M/uL (4.20-5.40); White Blood Count 7.82 K/ul (4.8-10.8)
[2022-11-01 08:56] LABS: BUN Creatinine Ratio 7.1 (10-20); Creatinine Clr Calc Pharmacy 152.6 ml/min; Est GFR (African American) 141.5 ml/min; Est GFR (Non-African American) 122.1 ml/min; Magnesium 1.9 mg/dl (1.7-2.4); Phosphorus 2.8 mg/dl (2.5-4.9); Potassium 3.6 mmol/L (3.5-5.1)
--- NOTE | 2022-11-01 13:04 | Hospitalist Progress Note ---
Date of Service November 01, 2022 delayed entry date of service noted above Assessment & Plan (1) Cellulitis: Plan: Per admitting service note with addendum 47-year-old female with past medical history significant for obstructive sleep apnea, hypertension, morbid obesity, GERD, TEO presents with cellulitis of the groin and lower abdominal region. Cellulitis In the groin region extending into the lower abdomen region. Failed outpatient treatment with p.o. doxycycline. In the ER was given IV Vanco and Rocephin which will be continued. Monitor in the hospital and monitor the response. Pain control. 10/31 erythema and tenderness both much improved per patient. Continue with IV antibiotics. 11/01 Symptoms also significantly improved Erythema and tenderness also resolving Transition to oral Augmentin and clindamycin Also advised to take probiotics for a whole month Follow-up with PCP in 1 week Obstructive sleep apnea CPAP nightly. Hypertension Close outpatient monitoring Morbid obesity S/p gastric surgery Follow-up with PCP. Generalized anxiety disorder On fluoxetine. DVT prophylaxis Lovenox. Disposition Discharged to Home Follow-up with primary care physician in 1 week Full code. plan of care discussed with patient in detail and at length all questions answered she is understanding, agreeable, comfortable with the plan of care Admission and Anticipated Discharge Date Admission Date: October 30, 2022 Subjective ff up for cellulitis, etc. Patient seen and examined with RN at the bedside throughout whole encounter Seen resting in bed, sitting up, comfortable, not distressed States she feels much better overall Very minimal discomfort in the affected areas Voiding well, ambulating much better No fevers or chills no chest pain, dyspnea, palpitations, dizziness No other symptoms States she is ready and would like to be discharged Review of Systems Review of Systems: all noted and negative except for above Physical Exam Physical Exam: General- oriented x 3, not in distress, speaks in sentences with no effort or accessory muscle use Head- atraumatic Eyes- PERRL, EOMI, anicteric ENT- oropharynx clear Neck- supple, no JVD, no adenopathy, no thyromegaly; carotids +2/2, no bruits appreciated Lungs- clear to auscultation bilaterally, no rales/wheezes Heart- normal rate, regular rhythm; no murmur, no gallop, no rub appreciated Abdomen- normal bowel sounds, nondistended, soft, nontender, no masses or hepatosplenomegaly Mild erythema in the right lower quadrant region below the waistline, and inguinal area Mild induration noted, but no tenderness, no erythema Extremities- no pretibial edema, no calf tenderness; peripheral pulses intact Neuro- alert, oriented x 3; CN 2-12 grossly intact; motor 5/5 b ilaterally;sensation 100% on all extremities; no other gross focal neurologic deficits Skin- warm & dry Results & Data Results & Data Vital Signs (Past 12 Hours) Vital Signs Temp Pulse Resp BP Pulse Ox O2 Del Method 11/01/22 07:29 36.6 C 80 16 147/93 H 98 Room Air all noted and reviewed including below (1) Cellulitis Site of cellulitis: unspecified site Qualified Code(s): L03.90 - Cellulitis, unspecified
--- NOTE | 2022-11-01 13:45 | Pharmacy Report ---
Pharmacy PK ABX Note - Date of Service November 01, 2022 - Assessment and Plan Assessment 47 year old F receiving Vancomycin and Ceftriaxone for treatment of groin and lower abdominal cellulitis. * Day #2 of antimicrobial therapy. * Afebrile. Leukocytosis of 14.2k initially, down to 7.8k today. SCr near baseline at 0.42 mg/dL today. Procal positive at 3.96 on day of admissions * Blood cultures NGTD Plan Vancomycin * Random level at noon today was 6.7 mg/L which is SUBtherapeutic * INCREASE dose: 1250 mg IV every 8 hours * Regimen is predicted to achieve target AUC/EZEQUIEL of 400-600 mg/L.hr with risk of toxicity of 8% * Random level to be ordered if continued > 48 hours Pharmacy will continue to follow and will adjust dose/frequency as necessary. Thank you. Pharmacy has transitioned to AUC monitoring for vancomycin. AUC/EZEQUIEL is the preferred PK/PD target and is associated with decreased risk of nephrotoxicity compared to traditional trough targets.
[2022-11-01] MEDS ORDERED: VANCOMYCIN HCL 1,250 MG in SODIUM CHLORIDE 0.9% 250 ML IV SCH (14:00)
[2022-11-03] MEDS ORDERED: VANCOMYCIN LEVEL ONE (05:30)
--- NOTE | 2022-11-09 09:35 | Discharge Summary ---
Discharge Summary Date of Service November 09, 2022 delayed entry date of service November 01, 2022 Notes For Next Care Provider Medication Changes From Visit Augmentin Clindamycin Admission HPI Per Admitting Provider 47-year-old female with past medical history significant for obstructive sleep apnea on CPAP, hypertension, morbid obesity, GERD, generalized anxiety disorder, history of bariatric surgery presents with cellulitis of the lower abdominal and groin region and failed outpatient treatment with doxycycline. Patient thinks she might of some cut from shaving in groin region and recently she was at beach and last Sunday she noticed some pain and erythematous changes in the groin region. She came to the ER on Sunday. At that time she was feeling having some chills and possibly low-grade fevers. She was discharged from ER on p.o. doxycycline. Patient says her pain got worse and the erythematous rash got worse so she came back to the ER today. Currently resting comfortably and hemodynamically stable. Denies any headache currently , had headaches couple of days ago. Denies dizziness. No runny nose, no sore throat, no earaches, no cough, no difficulty swallowing. No chest pain or shortness of breath. No nausea. Normal bowel and bladder movements. Past medical history as mentioned above. Past surgical history EGD, laparoscopic procedure of the liver, laparoscopic gastric bypass surgery Hayley-en-Y. Admission Exam Per Admitting Provider General- adult Head- atraumatic Eyes- PERRL, ENT- oropharynx clear Neck- supple, no JVD, Lungs- clear to auscultation and percussion Heart- regular rhythm; no murmur, no gallop, no rub appreciated Abdomen- normal bowel sounds, soft, erythematous rash from groin to lower abdomen, tender to palpate. Extremities- no pretibial edema, no calf tenderness; peripheral pulses intact Neuro- alert, oriented x 3; PERRL, EOMI; no facial palsy; no dysarthria; non focal. Principal Dx & Hospital Course #1 = Principal Diagnosis (1) Cellulitis: Per admitting service note with addendum 47-year-old female with past medical history significant for obstructive sleep apnea, hypertension, morbid obesity, GERD, TEO presents with cellulitis of the groin and lower abdominal region. Cellulitis In the groin region extending into the lower abdomen region. Failed outpatient treatment with p.o. doxycycline. In the ER was given IV Vanco and Rocephin which will be continued. Monitor in the hospital and monitor the response. Pain control. 10/31 erythema and tenderness both much improved per patient. Continue with IV antibiotics. 11/01 Symptoms also significantly improved Erythema and tenderness also resolving Transition to oral Augmentin and clindamycin PO Also advised to take probiotics for a whole month Follow-up with PCP in 1 week Obstructive sleep apnea CPAP nightly. Hypertension Close outpatient monitoring Morbid obesity S/p gastric surgery Follow-up with PCP. Generalized anxiety disorder On fluoxetine. DVT prophylaxis Lovenox. Disposition Discharged to Home Follow-up with primary care physician in 1 week Full code. plan of care discussed with patient in detail and at length all questions answered she is understanding, agreeable, comfortable with the plan of care Discharge Exam General- oriented x 3, not in distress, speaks in sentences with no effort or accessory muscle use Head- atraumatic Eyes- PERRL, EOMI, anicteric ENT- oropharynx clear Neck- supple, no JVD, no adenopathy, no thyromegaly; carotids +2/2, no bruits appreciated Lungs- clear to auscultation bilaterally, no rales/wheezes Heart- normal rate, regular rhythm; no murmur, no gallop, no rub appreciated Abdomen- normal bowel sounds, nondistended, soft, nontender, no masses or hepatosplenomegaly Mild erythema in the right lower quadrant region below the waistline, and inguinal area Mild induration noted, but no tenderness, no erythema Extremities- no pretibial edema, no calf tenderness; peripheral pulses intact Neuro- alert, oriented x 3; CN 2-12 grossly intact; motor 5/5 bilaterally;sensation 100% on all extremities; no other gross focal neurologic deficits Skin- warm & dry Updated Medication List Medication Instructions Recorded Confirmed Type montelukast 10 mg tablet 10 mg PO DAILY 04/05/20 10/30/22 History (Singulair) desogestrel 0.15 mg-ethinyl 1 tab PO DAILY 10/30/22 10/30/22 History estradiol 0.03 mg tablet (Enskyce) fluoxetine 40 mg capsule 40 mg PO DAILY 10/30/22 10/30/22 History multivitamin 1 tab PO DAILY 10/30/22 10/30/22 History semaglutide (weight loss) 2.4 2.4 mg subcut WK 10/30/22 10/30/22 History mg/0.75 mL subcutaneous pen injector (Wedmitriy) Hospital Stay Data Consultations 10/30/22 20:44 ED Decision to Admit Stat Diagnostic Imagining Performed Laboratory Results WBC 7.82 K/ul (4.8-10.8) 11/01/22 08:10 RBC 3.97 M/uL (4.20-5.40) L 11/01/22 08:10 Hgb 11.9 g/dl (12.0-16.0) L 11/01/22 08:10 Hct 36.1 % (37.0-47.0) L 11/01/22 08:10 MCV 90.9 fL (80.0-100.0) 11/01/22 08:10 MCH 30.0 pg (25.0-34.0) 11/01/22 08:10 MCHC 33.0 g/dL (32.0-36.0) 11/01/22 08:10 RDW Std Deviation 42.6 fL (36.4-46.3) 11/01/22 08:10 RDW Coeff of Zana 12.9 % (11.5-14.5) 11/01/22 08:10 Plt Count 235 K/uL (130-400) 11/01/22 08:10 MPV 9.8 fL (9.4-12.4) 11/01/22 08:10 Immature Gran % (Auto) 0.4 % 11/01/22 08:10 Neut % (Auto) 70.1 % 11/01/22 08:10 Lymph % (Auto) 21.4 % 11/01/22 08:10 [place] % (Auto) 6.3 % 11/01/22 08:10 Eos % (Auto) 1.4 % 11/01/22 08:10 Baso % (Auto) 0.4 % 11/01/22 08:10 Neut # (Auto) 5.49 K/uL (1.40-6.50) 11/01/22 08:10 Lymph # (Auto) 1.67 K/uL (1.2-3.4) 11/01/22 08:10 [place] # (Auto) 0.49 K/uL (0.11-0.59) 11/01/22 08:10 Eos # (Auto) 0.11 K/uL (0-0.50) 11/01/22 08:10 Baso # (Auto) 0.03 K/uL (0-0.2) 11/01/22 08:10 Immature Gran # (Auto) 0.03 K/uL (0.01-0.20) 11/01/22 08:10 PT 10.3 Seconds (9.0-12.0) 10/30/22 18:12 INR 0.9 (0.9-1.1) 10/30/22 18:12 APTT 27.6 Seconds (21.0-31.0) 10/30/22 18:12 PTT Ratio 1.0 10/30/22 18:12 Sodium 140 mmol/L (136-145) 11/01/22 08:10 Potassium 3.6 mmol/L (3.5-5.1) 11/01/22 08:10 Chloride 107 mmol/L (98-107) 11/01/22 08:10 Carbon Dioxide 27 mmol/L (21-32) 11/01/22 08:10 Anion Gap 6 (3-11) 11/01/22 08:10 BUN 3 mg/dl (6-23) L 11/01/22 08:10 Creatinine 0.42 mg/dl (0.6-1.2) L 11/01/22 08:10 Est Cr Clr Drug Dosing 152.6 ml/min 11/01/22 08:10 Est GFR ( Amer) 141.5 ml/min 11/01/22 08:10 Est GFR (Non-Af Amer) 122.1 ml/min 11/01/22 08:10 BUN/Creatinine Ratio 7.1 (10-20) L 11/01/22 08:10 Glucose 94 mg/dl (70-99(Fasting)) 11/01/22 08:10 Estimat Average Glucose 111 mg/dl 10/31/22 06:19 Hemoglobin A1c 5.5 % (4.5-5.6) 10/31/22 06:19 Lactate 0.9 mmol/L (0.4-2.0) 10/30/22 18:12 Calcium 8.0 mg/dl (8.6-10.3) L 11/01/22 08:10 Phosphorus 2.8 mg/dl (2.5-4.9) 11/01/22 08:10 Magnesium 1.9 mg/dl (1.7-2.4) 11/01/22 08:10 Total Bilirubin 0.5 mg/dl (0.2-1.0) 10/30/22 18:12 AST 12 U/L (13-39) L 10/30/22 18:12 ALT 15 U/L (7-52) 10/30/22 18:12 Alkaline Phosphatase 73 U/L (34-104) 10/30/22 18:12 Total Protein 7.1 gm/dl (6.0-8.3) 10/30/22 18:12 Albumin 3.8 gm/dl (3.4-5.0) 10/30/22 18:12 Globulin 3.3 gm/dl (2.5-4.0) 10/30/22 18:12 Albumin/Globulin Ratio 1.2 (0.9-2) 10/30/22 18:12 Procalcitonin 3.96 ng/ml (0-0.5) H 10/30/22 18:12 Random Vancomycin 6.7 mcg/ml (10-20) L 11/01/22 11:53 SARS-CoV-2, RNA, NAAT NEGATIVE (NEGATIVE) 10/30/22 20:55 Impressions Abdomen/Pelvis CT 10/30/22 18:29 Exam(s): CT ABDOMEN + PELVIS With Contrast IV Amt: 95ml optiray 320 EXAM: CT Abdomen and Pelvis With Intravenous Contrast CLINICAL HISTORY: Reason for exam: R inguinal RLQ possible abscess. TECHNIQUE: Axial computed tomography images of the abdomen and pelvis with intravenous contrast. CTDI is 28.11 mGy and DLP is 1244.93 mGy-cm. Automated exposure control was utilized for the study. A dose lowering technique was utilized adhering to the principles of ALARA. CONTRAST: Patient received 95ml optiray 320 of IV contrast COMPARISON: No relevant prior studies available. FINDINGS: Lung bases: Unremarkable. No mass. No consolidation. ABDOMEN: Liver: Unremarkable. No mass. Gallbladder and bile ducts: Unremarkable. No calcified stones. No ductal dilation. Pancreas: Unremarkable. No mass. No ductal dilation. Spleen: Unremarkable. No splenomegaly. Adrenals: Unremarkable. No mass. Kidneys and ureters: Unremarkable. No solid mass. No hydronephrosis. Stomach and bowel: Status post Hayley-en-Y gastric bypass. No obstruction of the jejunojejunostomy. Diverticulosis, without acute diverticulitis. No small bowel obstruction. No free intraperitoneal air. PELVIS: Appendix: No findings to suggest acute appendicitis. Bladder: Unremarkable. No mass. Reproductive: Unremarkable as visualized. ABDOMEN and PELVIS: Intraperitoneal space: Unremarkable. No free air. No significant fluid collection. Bones/joints: Grade 1 anterolisthesis of L5 on S1. No acute fracture. No dislocation. Soft tissues: Mild skin thickening and edema along the anterior abdominal pannus, preferentially located in the deep pannus on the RIGHT, consistent with cellulitis. No fluid collection or abscess. Mild reactive RIGHT inguinal lymph nodes. Vasculature: Unremarkable. No abdominal aortic aneurysm. Lymph nodes: Unremarkable. No enlarged lymph nodes. IMPRESSION: 1. Mild skin thickening and edema along the anterior abdominal pannus, preferentially located in the deep pannus on the RIGHT, consistent with cellulitis. No fluid collection or abscess. Mild reactive RIGHT inguinal lymph nodes. 2. Status post Hayley-en-Y gastric bypass. No obstruction of the jejunojejunostomy. Electronically signed by: Ryan Cobian MD 10/30/22 20:03 PM 10/30/22 18:29 CT abd pelvis IV con only Stat Pending Results Patient Have Any Pending Studies at Discharge: No Discharge Instructions Given to Patient (Per Discharging Provider) PLEASE REFER TO YOUR NEW MEDICATION LIST AND FOLLOW INSTRUCTIONS CAREFULLY. YOUR NEW MEDICATIONS INCLUDE: AUGMENTIN, CLINDAMYCIN - antibiotics for cellulitis PROBIOTICS- to prevent C diff diarrhea, take for at least 30 days, Renew Life brand recommended Please drink plenty of water. PLEASE CALL YOUR PRIMARY CARE PHYSICIAN OR RETURN TO THE ER IF WITH WORSENING OF SYMPTOMS, INCLUDING worsening swelling, redness, pain of the affected area, fever/chills, nausea/vomiting, diarrhea, etc. FOLLOW UP WITH PRIMARY CARE PHYSICIAN OUTLINED ABOVE. Total Time Total Time Spent Total Time Spent (In Minutes): > 30 minutes
== END 2022-11-01 17:32 | disposition home or self-care (01) | DRG 603 ==
LOC: ED 17:28 → 3W 23:20 → INTOOBSV 23:20 → SUATTDRO 23:20 → 3W 10-31 00:32
DX: L03.314 Cellulitis of groin; E66.01 Morbid (severe) obesity due to excess calories; Z98.84 Bariatric surgery status; Z79.3 Long term (current) use of hormonal contraceptives; Z68.39 Body mass index [BMI] 39.0-39.9, adult; Z79.899 Other long term (current) drug therapy; Z20.822 Contact with and (suspected) exposure to COVID-19; L03.311 Cellulitis of abdominal wall; Z87.891 Personal history of nicotine dependence; K21.9 Gastro-esophageal reflux disease without esophagitis; G47.33 Obstructive sleep apnea (adult) (pediatric); I10 Essential (primary) hypertension